=== PATIENT | male | born 1950 | race Caucasian/White ===

== ENCOUNTER 2017-06-30 08:26 | Emergency (ER) | payer MEDICAID ==
--- NOTE | 2017-06-30 08:31 | EDPHY ---
HPI/HX/ROS/PE/MDM Narrative: CHIEF COMPLAINT: Right knee pain HPI: The patient is a homeless 66 y/o male arriving via EMS from the residential complaining of right knee pain secondary to a fall this morning. He was walking out of the bathroom and felt his right knee "go out" then he fell and struck his right knee on the floor. He has chronic pain in both knees and now acute pain on the lateral aspect of his right knee. He denies head strike, loss of consciousness, weakness, paresthesias, spinal pain, or other injuries. History of a liver transplant in 2008. REVIEW OF SYSTEMS: Aside from elements discussed in the HPI, a comprehensive 10-point review of systems was reviewed and is negative. PMH: Liver transplant 2008. SOCIAL HISTORY: Homeless. Normally walks with a cane. PHYSICAL EXAM: General:Patient is alert, in no acute distress. Thin. ENT:Eyes are normal to inspection. ENT inspection normal. Neck: Normal inspection. Full range of motion. Respiratory:No respiratory distress. Cardiovascular: Strong peripheral pulses. Normal cap refill. Skin: Normal color. No rash. Warm and dry. Extremities: Normal appearance. Full range of motion. Right knee is nontender, no visible trauma or effusion. No evidence of foreign body. Neuro: Oriented x3. Normal motor function. Normal sensory function. ED Course: This is a homeless 66 y/o male with a history of a liver transplant who presents from the residential with right knee pain worse than baseline after a fall this morning. No evidence of effusion or visible trauma on exam of his right knee. Plan for x-ray to rule out fracture. X-ray shows no acute fracture. Patient will be discharged with standard knee sprain care and follow up instructions. Return precautions discussed. - Data Points Imaging Results: Imaging Impressions Knee X-Ray 06/30/17 08:28 Impression: 1. No acute osseous abnormality seen right knee. 2. Moderate degenerative joint disease lateral knee joint with associated lateral osteophytes. 3. Mild soft tissue contusion suspected superficial to the patella with radiopaque density near the dermis that could represent foreign body. Imaging: Discussed imaging studies w/ sewer pipe offbearer Radiologist, I viewed and interpreted images myself General Initial Vital Signs: Initial Vital Signs Temperature (C) 36.8 C 06/30/17 08:31 Heart Rate 85 06/30/17 08:31 Respiratory Rate 16 06/30/17 08:31 Blood Pressure 129/81 H 06/30/17 08:31 O2 Sat (%) 92 06/30/17 08:31 O2 Delivery Mode Room Air Departure - Departure Disposition: Home, Routine, Self-Care Clinical Impression: Strain of right knee Qualifiers: Encounter type: initial encounter Qualified Code(s): S86.911A - Strain of unspecified muscle(s) and tendon(s) at lower leg level, right leg, initial encounter Condition: Good Instructions: Knee Pain (ED) Additional Instructions: 1. Take 600mg ibuprofen every 6-8 hours for pain and inflammation over the next 2-3 days. 2. Apply ice to sore areas. Expect to feel more sore over the next 24-48 hours. 3. Follow up with your primary care provider for unimproved symptoms over the next few days. Referrals: [facility],. [Clinic] - As per Instructions Report Scribed for: Tony Maynard Report Scribed by: Jenna Bejarano Date of Report: 06/30/17 Time of Report: 08:31 Physician Review and Approval Statement: Portions of this note were transcribed by an ED scribe. I personally performed the history, physical exam, and medical decision making; and confirm the accuracy of the information in the transcribed note.
[2017-06-30 08:38] VITALS: RESP 16
[2017-06-30 09:57] VITALS: BP 127/86; PULSE 83; TEMP 98.4; O2SAT 93
== END 2017-06-30 09:57 | disposition home or self-care (01) ==
DX: S86.911A Strain of unspecified muscle(s) and tendon(s) at lower leg level, right leg, initial encounter (principal); W18.09XA Striking against other object with subsequent fall, initial encounter; Y99.8 Other external cause status; Y93.01 Activity, walking, marching and hiking

== ENCOUNTER 2017-07-10 21:30 | Emergency (ER) | payer MEDICAID ==
[2017-07-10 21:47] VITALS: TEMP 97.9
--- NOTE | 2017-07-10 22:51 | EDPHY ---
H & P Stated Complaint: mechanical fall, hit head Source: Patient Exam Limitations: No limitations - Personal History Current Tetanus/Diphtheria Vaccine: Yes - Medical/Surgical History Hx Asthma: No Hx Chronic Respiratory Disease: No Hx Diabetes: No Hx Cardiac Disease: No Hx Renal Disease: No Hx Cirrhosis: No Hx Alcoholism: No Hx HIV/AIDS: No Hx Splenectomy or Spleen Trauma: No Other PMH: PMH: liver transplant 2009, chronic right knee pain. PSH: - Social History Smoking Status: Never smoked HPI/ROS: HPI: This is a 66-year-old male who presents with Chief Complaint: mechanical fall, hit head Location: Left forehead, posterior neck Quality: Injury Duration: 1 hr prior to arrival Signs and Symptoms: No LOC, no amnesia, no vomiting, No bleeding, no radiation , no numbness, no weakness, no tingling, no incontinence, no decreased range of motion, no swelling, + pain Timing: Acute Severity: [id number] Context: Patient is homeless and was carrying bags from his car. He reports that he lost his balance while getting out of the car and tripped, falling backwards and then to the side hitting the left side of his forehead and then with being his posterior neck back onto the cement. Tripped from standing position. Remembers all events surrounding the injury. Ambulatory at the scene. Denies LOC. Does complain of bilateral posterior neck discomfort but nonradiating in nature. Right-hand dominant. Cannot take Tylenol due to history of liver transplant. Denies alcohol or drug use. Patient reports he is drove himself to the emergency room. Has not taking any mebi-ose-njojliz medications for the discomfort. He complains of a dull aching headache on the left side of his forehead. Tetanus up-to-date. Not on any blood thinners. Modifying Factors: None Comment: ROS: see HPI Constitutional: No fever, no chills, no weight loss Eyes: No blurred vision Respiratory: No shortness of breath, no cough Cardiovascular: No chest pain Gastrointestinal: No nausea, no vomiting no diarrhea Genitourinary: No dysuria Extremities: No myalgias Neurologic: No weakness, no numbness Skin: No rashes Hematologic: No bruising, no bleeding MEDICAL/SURGICAL/SOCIAL HISTORY: Medical/Surgical history: liver transplant 2009, chronic right knee pain Social history: Homeless. CONSTITUTIONAL: Elderly, polite and cooperative, white male, awake and alert, no obvious distress HEENT: Small contusion without superficial abrasion noted on left side of forehead; no active bleeding; and normocephalic, PERRL, EOMI. no globe entrapment, no raccoon eyes. no Valle signs.Tympanic membranes clear. No tympanic membrane rupture. Nares patent; no septal hematoma. Oropharynx clear, no exudate and moist pink mucosa. No malocclusion. no dental trauma. Airway patent. No lymphadenopathy. NECK: supple, no midline tenderness, mild reproducible bilateral cervical paraspinous muscle tenderness, flexion 45 degrees, extension 45 degrees, right and left lateral flexion 45 degrees. No meningismus. Cardiovascular: Normal S1/S2, regular rate, regular rhythm, without murmur rub or gallop. PULMONARY/CHEST: Symmetrical and nontender. no crepitus. Clear to auscultation bilaterally. Good air movement. No accessory muscle usage. ABDOMEN: Soft, nondistended, nontender, no ecchymosis, no rebound, no guarding , no peritoneal signs, no masses or organomegaly. No CVAT. PELVIC: no pain with rocking; bilateral hips flexion 125 degrees, extension 30 degrees, with no pain internal rotation and no pain external rotation. BACK: No midline tenderness, no paraspinous spasm, deep tendon reflexes 2/2, no pain with straight leg raise EXTREMITIES: 2/2 pulses, no deformities, no clubbing, no cyanosis or edema. NEUROLOGICAL: no focal neuro deficits. GCS 15. SKIN: Warm and dry, no erythema. no rash. Good capillary refill. (Solo,Terra) Constitutional: Initial Vital Signs Temperature (C) 36.6 C 07/10/17 21:34 Heart Rate 103 H 07/10/17 21:34 Respiratory Rate 18 07/10/17 21:34 Blood Pressure 134/102 H 07/10/17 21:34 O2 Sat (%) 94 07/10/17 21:34 O2 Delivery Mode Room Air Allergies/Adverse Reactions: No Known Allergies Allergy (Unverified 07/10/17 21:37) Home Medications: Medication Instructions Recorded Tacrolimus 07/10/17 Medical Decision Making - Diagnostics Imaging Results: Imaging Impressions Cervical Spine CT 07/10/17 22:25 Impression: 1. No acute fracture or soft tissue swelling. 2. If the patient has persistent pain or neurologic deficits, consider cervical spine MRI. Findings discussed with Emergency Department physician, Rhiannon Banda at 2017 23:28. Head CT 07/10/17 22:25 Impression: 1. No acute fracture or evidence of acute intracranial injury. 2. Minimal left frontal scalp swelling. Findings discussed with Emergency Department physician, Rhiannon Banda at 2017 23:28. ED Course/Re-evaluation: Fall accidental in nature. Based on [place] head CT and cervical CT criteria: Age greater than or equal to 65 No neurological deficits Given ice pack and left forehead contusion/abrasion clean with soap and water and bacitracin applied. Called by radiologist, Dr. Mueller, who advised that Head CT shows no acute intracranial abnormality. CT cervical scan shows no acute fracture; severe multilevel degenerative changes No signs of neurovascular compromise/tenting of skin/compartment syndrome/ extremities and joints examined above and below area of concern and are neurovascularly intact. This patient was seen under the supervision of my secondary supervising physician. I evaluated care for this patient independently. (Rhiannon Banda) PHYSICIAN DOCUMENTATION: The patient was evaluated and managed by the Physician Resident Service Coordinator. My co- signature indicates that I have reviewed this chart and I agree with the findings and plan of care as documented. I am the secondary supervising physician. (Nehal Flaherty) Differential Diagnosis: Head injury including but not limited to concussion, skull fracture, intraparenchymal contusion, subarachnoid, subdural and epidural hematoma. (Rhiannon Banda) Departure - Departure Disposition: Home, Routine, Self-Care Clinical Impression: Degenerative disc disease, cervical Contusion of forehead Qualifiers: Encounter type: initial encounter Qualified Code(s): S00.83XA - Contusion of other part of head, initial encounter Accidental fall Qualifiers: Encounter type: initial encounter Qualified Code(s): W19.XXXA - Unspecified fall, initial encounter Condition: Good Instructions: Abrasion (ED), Scalp Contusion in Adults (ED), R.I.C.E. Treatment (ED), Degenerative Disc Disease (ED) Additional Instructions: Keep the dressing dry and in place for 48 hours. After 48 hours, you may remove the dressing; wash the site daily with mild soap and water; then pat dry; apply topical antibiotic ointment and clean sterile dressing until fully healed. Take Ibuprofen 600 mg every 8 hours with food as needed for pain. Apply ice for 30 minutes at a time; 2-3 times per day for the next 1-2 days. Monitor for signs and symptoms of concussion. Head CT scan shows no acute bleed. Cervical CT scan shows severe degenerative disc disease but no acute fracture. Referrals: [facility],. [Clinic] - As per Instructions
[2017-07-10 23:45] VITALS: BP 125/86; PULSE 91; RESP 14; O2SAT 91
== END 2017-07-11 00:32 | disposition home or self-care (01) ==
LOC: EDUNIT# → EDBD → EDSEX
DX: S00.83XA Contusion of other part of head, initial encounter (principal); M50.30 Other cervical disc degeneration, unspecified cervical region; W01.198A Fall on same level from slipping, tripping and stumbling with subsequent striking against other object, initial encounter; Y93.89 Activity, other specified

== ENCOUNTER 2017-07-20 01:57 | Inpatient (IN) | payer OTHER, MEDICAID ==
[2017-07-20] MEDS ORDERED: IPRATROPIUM/ALBUTEROL 3 ML DEYVIAL IH ONE (02:00)
[2017-07-20] MEDS ORDERED: NS 500 ML IV ONE (02:00)
[2017-07-20 02:07] LABS: PLATELET COUNT 149 10^3/uL (150-400)
[2017-07-20] MEDS ORDERED: NS 1,000 ML IV ONE ×2 (03:49→08:19)
[2017-07-20] MEDS ORDERED: IBUPROFEN 200 MG TAB PO ONE (05:00)
--- NOTE | 2017-07-20 05:02 | EDPHY ---
H & P Stated Complaint: SOB-Cough HPI/ROS: HPI The patient presents [facility] in by ambulance [facility] the [facility] for cough , generalized weakness, subjective fevers. The patient says he has been sick for a few days now and feels generally tired and very weak. He has a cough which is constant, productive of yellowish-green sputum. He has felt warm though has not been able to check his temperature. He has had rhinorrhea and sore throat. He is status post liver transplant in 2008 and is taking CellCept. He denies any smoking history or any underlying lung disease. As he had initial saturations of about 88% in the field, improved with supplemental oxygen.. REVIEW OF SYSTEMS Constitutional: Subjective fevers Eyes: No discharge. ENT: Positive for sore throat. Cardiovascular: No chest pain, no palpitations. Respiratory: Positive for cough, no shortness of breath. Gastrointestinal: No abdominal pain, no vomiting. Genitourinary: No hematuria. Musculoskeletal: No back pain. Skin: No rashes. Neurological: No headache. PMHx: Status post liver transplant in 2008 Soc Hx: Homeless, no alcohol use, no smoking PHYSICAL General Appearance: Alert, somewhat disheveled Eyes: Pupils equal and round no pallor or injection ENT, Mouth: Mucous membranes dry Respiratory: Actively coughing, coarse breath sounds throughout all lung amado Cardiovascular: Mild tachycardia with regular rhythm Gastrointestinal: Abdomen is soft and non-tender, no masses, bowel sounds normal Neurological: A&O, moves all extremities Skin: Warm and dry, no rashes Musculoskeletal: Neck is supple non tender Extremities: symmetrical, full range of motion, shins with abrasions Psychiatric: Patient is oriented X 3, there is no agitation Source: Patient Exam Limitations: No limitations - Personal History Current Tetanus Diphtheria and Acellular Pertussis (TDAP): Yes - Medical/Surgical History Hx Asthma: No Hx Chronic Respiratory Disease: No Hx Diabetes: No Hx Cardiac Disease: No Hx Renal Disease: No Hx Cirrhosis: No Hx Alcoholism: No Hx HIV/AIDS: No Hx Splenectomy or Spleen Trauma: No Other PMH: PMH: liver transplant 2008, chronic right knee pain. PSH: - Social History Smoking Status: Never smoked Constitutional: Initial Vital Signs Temperature (C) 37.4 C 07/20/17 02:03 Heart Rate 95 07/20/17 02:03 Respiratory Rate 24 H 07/20/17 02:03 Blood Pressure 158/87 H 07/20/17 02:03 O2 Sat (%) 89 L 07/20/17 02:03 O2 Delivery Mode Nasal Cannula O2 (L/minute) 2 Allergies/Adverse Reactions: No Known Allergies Allergy (Unverified 07/20/17 02:02) Home Medications: Medication Instructions Recorded Tacrolimus [Prograf] 1 mg PO BID 07/10/17 Medical Decision Making - Diagnostics Imaging Results: Imaging Impressions Chest X-Ray 07/20/17 02:00 Impression: Possible early right middle lobe pneumonia. . Imaging: I viewed and interpreted images myself Differential Diagnosis: This is a 66-year-old homeless male, status post liver transplant on tacrolimus who presents brought in by ambulance from the [facility] with weakness, cough, subjective fevers. On arrival, he is slightly tachycardic, hypoxic, with coarse breath sounds throughout all lung amado. Differential diagnosis includes influenza, pneumonia, RSV bronchiolitis, pericarditis. In the emergency department, patient was given IV fluids in DuoNeb with minimal improvement in his symptoms, chest x-ray was obtained and showed possible right middle lobe infiltrate. Testing was positive for RSV. He became increasingly tachycardic while in the emergency department, even several hours after receiving DuoNeb. He has been given antibiotics. Blood cultures have been drawn. He will be admitted to the hospitalist service. I discussed the case with Dr. Mccormack. - Data Points Laboratory Results: Laboratory Results 07/20/17 02:00 07/20/17 02:00 Medications Given: Enoxaparin Sodium (Lovenox) 40 mg SC DAILY FRANCO Stop: 01/16/18 08:59 Last Admin: 07/20/17 09:42 Dose: 40 mg Dextrose/Sodium Chloride (D5w 1/2 Ns) 1,000 mls @ 100 mls/hr IV CONT FRANCO Stop: 01/16/18 08:59 Last Admin: 07/20/17 17:54 Dose: 1,000 mls Ibuprofen (Motrin) 400 mg PO Q6HRS PRN PRN Reason: Pain, Inflammatory Stop: 01/16/18 17:40 Last Admin: 07/20/17 17:52 Dose: 400 mg Tacrolimus (Prograf) 1 mg PO Q12H FRANCO Stop: 01/16/18 19:44 Last Admin: 07/20/17 19:43 Dose: 1 mg Discontinued Medications Albuterol/Ipratropium (Duoneb) 3 ml IH EDNOW ONE Stop: 07/20/17 02:01 Last Admin: 07/20/17 02:17 Dose: 3 ml Sodium Chloride (Ns) 500 mls @ 1,000 mls/hr IV EDNOW ONE PRN Reason: Protocol Stop: 07/20/17 02:29 Last Admin: 07/20/17 02:16 Dose: 500 mls Sodium Chloride (Ns) 1,000 mls @ 0 mls/hr IV EDNOW ONE; Wide Open PRN Reason: Protocol Stop: 07/20/17 03:50 Last Admin: 07/20/17 04:06 Dose: 1,000 mls Sodium Chloride (Ns) 1,000 mls @ 0 mls/hr IV ONCE ONE PRN Reason: Wide Open Stop: 07/20/17 08:20 Last Admin: 07/20/17 08:20 Dose: 1,000 mls Ibuprofen (Motrin) 600 mg PO EDNOW ONE Stop: 07/20/17 05:01 Last Admin: 07/20/17 05:02 Dose: 600 mg Levofloxacin (Levaquin) 750 mg PO EDNOW ONE PRN Reason: Protocol Stop: 07/20/17 04:38 Last Admin: 07/20/17 05:01 Dose: 750 mg Departure - Departure Disposition: [facility] Acute Condition: Fair
[2017-07-20] MEDS ORDERED: ALBUTEROL 3 ML DEYVIAL IH PRN (05:06)
[2017-07-20] MEDS ORDERED: ONDANSETRON 4 MG/2 ML VIAL IVP PRN (05:06)
[2017-07-20] MEDS ORDERED: ACETAMINOPHEN 325 MG TAB PO PRN (05:06)
--- NOTE | 2017-07-20 09:22 | GHP ---
[f rep st] HISTORY AND PHYSICAL DATE OF ADMISSION: 07/20/2017 Patient without a PCP. SOURCE: Patient provides history, is a fair historian. EMR reviewed and case discussed with ED belem hernandez. CHIEF COMPLAINT: Cough. HISTORY OF PRESENT ILLNESS: This is a very pleasant 66-year-old gentleman who is currently homeless, who presents to the emergency department today with complaints of increasing cough, rhinorrhea, sore throat for the past week. Patient today has developed some increased fevers, chills, and shortness of breath. He has multiple sick contacts at the homeless retirement. He denies any nausea, vomiting, o r diarrhea. Patient reports cough is productive of yellow sputum. He denies any previous history of asthma or COPD. Patient does have a history significant for liver transplant, for which he continue s to take tacrolimus. REVIEW OF SYSTEMS: GENERAL: Positive for fevers, chills, sweats. SKIN: No rashes sores. ENT: Po sitive for congestion, sore throat. EYES: Patient denies any current acute changes in vision or ocu lar pain. CV: No chest pain palpitations. RESPIRATORY: Cough and shortness of breath, as noted pe r HPI. GI: Negative for nausea, vomiting, or diarrhea. : No dysuria or hematuria. MUSCULOSKELE AUGUSTO: Patient reports history of osteoarthritis, particularly in his knees. NEURO: Patient denies a ny focal weakness, but he does report a history of neuropathy in his distal extremities, upper and lo wer. PSYCH: Patient denies any anxiety or depression. Remainder of review of systems negative exce pt as noted above. ALLERGIES: No known drug allergies. HOME MEDICATIONS: Tacrolimus twice daily. PAST MEDICAL HISTORY: 1. Significant for liver transplant 2008, on chronic immunosuppression with tacrolimus. 2. Degenerative disk disease of cervical spine. 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 PAST SURGICAL HISTORY: Significant for liver transplant, TIPS procedure, EGD, colonoscopy prior to h is transplant. FAMILY HISTORY: Sister and mother also with a history of asthma and liver disease, both . SOCIAL HISTORY: Patient currently homeless. He relocated from [place] back to [place]. He is aw aiting housing placement. He has yet to establish PCP. Patient denies any history of tobacco, drugs, or alcohol. CODE STATUS: Full. PHYSICAL EXAMINATION: VITAL SIGNS: Upon arrival to the emergency department, blood pressure 158/87, heart rate is 95, respiratory rate 24, O2 saturation 89% on room air with a temperature 37.4. Vital s available at time of interview, blood pressure was 99/60, heart rate 104, respiratory rate 20, O2 s aturation 96% on nasal cannula 2 L. GENERAL: No acute distress. Patient is lying quietly in bed. He does appear chronically ill and quite cachectic. Appears older than stated age. HEAD: Normoceph alic, atraumatic. EYES: Extraocular muscles are intact. Pupils equal, round, reactive to light loree aterally and symmetric. No scleral icterus or conjunctival injection. ENT: Mucous membranes appear dry. No nasal discharge. No pharyngeal erythema or exudates. Dentition in poor condition. NECK: Supple. Trachea midline. CV: Tachycardic with regular rhythm. Patient does have a 2 to 3/6 systo lic murmur. RESPIRATORY: Unlabored breathing. Lungs are quite diminished at the bases. Patient do es have crackles bibasilarly. No wheezes or rhonchi. ABDOMEN: Positive bowel sounds. Soft, nonten goyo to palpation. No rebound, guarding, or masses appreciated. : No suprapubic tenderness to pal pation. No James catheter in place. EXTREMITIES: Patient without any cyanosis, clubbing, clubbing, or edema. 1+ pedal pulses. NEURO: Grossly nonfocal. No facial drooping. Patient awake, alert, a nd oriented x4. Moves all extremities. Sits up independently. PSYCH: Patient thought process, con tent, and questions are all appropriate. Patient is pleasant and cooperative. LABORATORY STUDIES: WBC 6.77, H and H 15.0 and 44.9, MCV 93.7, platelet count is 149, no bands. Sod ium 144, potassium is 4.7, chloride 104, CO2 is 27, anion gap 313, BUN is 22, creatinine 0.7, GFR gre ater than 60, glucose 88, calcium 9.9, total bilirubin 0.7, ALT 37, AST 32, alkaline phosphatase is 7 5, total protein 7.5, albumin 4.6. Flu PCR is negative. RSV positive. Blood cultures x2 pending. Chest x-ray image and report reviewed by myself. Bilateral lower lobe infiltrates in the r ight lower lobe. Peribronchiolar thickening bilaterally. ASSESSMENT AND PLAN: Very pleasant 66-year-old gentleman who presents with complaints of cough and f ever. 1. Respiratory syncytial virus, bronchiolitis, with likely superimposed pneumonia. Patient has rece ived Levaquin in the emergency department. Will plan to continue this. Nebulizer treatment will be available p.r.n. No previous history of lung disease. Patient will also receive aggressive IV fluid hydration in the emergency department. He received a 1.5 L bolus, which will continue as he does co ntinue to appear dry and blood pressures are slightly low. 2. Hypoxia. Supplemental oxygen. Titrate off as possible to maintain sats greater than 90. 3. Hypotension. Continue with aggressive IV fluid hydration. Patient is currently without a lactat e. We will add this on. 4. Hypertension. Will continue to monitor closely. 5. Immunosuppressive state. Continue patient's tacrolimus. He is currently on antibiotics. 6. History of liver transplant, as noted above. 7. Thrombocytopenia, likely related to patient's acute illness, is only minimally decreased, slightl y below normal. The patient will be placed on Lovenox for prophylaxis and will monitor platelet coun t closely. 8. Underweight. The patient's body mass index is 18.5. Nutrition consult. 9. Fluid, electrolyte, nutrition. Aggressive IV fluid hydration as noted above. Electrolytes will be monitored and replaced as needed. The patient will receive D5 half-normal saline at this time for supplementation. He has received 1.5 L normal saline in the emergency department. 10. Diet: As tolerated. 11. Prophylaxis. SCDs, Lovenox with monitoring of platelet count. 12. Code status is full. 13. Disposition: Patient has been admitted to observation status at this time, pending resolution o f his blood pressures and hypoxia with IV fluids and O2 supplementation. /[id number]/MODL
[2017-07-20] MEDS: D5W 1/2 NS 1,000 ML IV SCH ×2 (09:40→17:54)
[2017-07-20] MEDS: ENOXAPARIN 40 MG/0.4 ML SYR SC SCH (09:42)
--- NOTE | 2017-07-20 15:09 | ASMTCMCOM ---
CM Note CM Note Notes: Pt admittedd w/RSV and likely PNA. He has hx of liver transplant, is currently homeless staying at [facility] and awaiting housing. PT said pt may possibly need SNF, although pt just admitted today, will see how he progresses tomorrow and discuss possibility of SNF if not stronger. If pt dc's back to [facility] CM will need to speak to pt about establishing PCP and set up appt. CM will follow. Date Signed: 07/20/2017 03:08 PM Electronically Signed By:Kristen Fuentes RN
--- NOTE | 2017-07-20 15:43 | HOSPPROG ---
Hospitalist Progress Note Assessment/Plan: # acute respiratory syncytial virus infection- patient very symptomatic at presentation hypotension and tachycardic- subjective fevers and chills Blood cultures from admission- no growth today - continue IV fluid - continue supportive care # acute hypoxic respiratory failure - presume secondary to RSV however patient chronically immunosuppressed Chest x-ray(personally reviewed and interpreted) right middle lobe infiltrate Oxygen saturations 92% on 2 L - continue levofloxacin IV - monitor blood cultures - continue inhaled beta agonist # acute community-acquired pneumonia- suspect secondary to RSV however in the immunosuppressed state will cover for secondary bacterial pathogens # history of liver transplantation- continue home dosing of Prograf # tachycardia- suspect secondary to hypovolemia and acute infection - continue IV fluid resuscitation #Prophylaxis Lovenox # diet regular # disposition greater than 2 midnights as the patient is chronically immunosuppressed presenting with pneumonia I have discussed the case with the RN- continue current care Subjective: Feels terrible Objective: Vital Signs Temp Pulse Resp BP Pulse Ox 37.1 C 98 20 108/69 92 07/20/17 15:30 07/20/17 15:30 07/20/17 15:30 07/20/17 15:30 07/20/17 15:30 07/19/17 07/20/17 07/21/17 05:59 05:59 05:59 Intake Total 1000 Output Total 600 Balance 400 - Physical Exam Constitutional: no apparent distress Eyes: anicteric sclera Ears, Nose, Mouth, Throat: moist mucous membranes Cardiovascular: regular rate and rhythym Respiratory: no respiratory distress, No expiratory wheeze Gastrointestinal: normoactive bowel sounds Genitourinary: no bladder fullness Skin: warm Musculoskeletal: No asymmetric calves Neurologic: AAOx3 Psychiatric: interacting appropriately Lymph, Heme, Immunologic: no cervical LAD ICD10 Worksheet Patient Problems: Problems Problem Status Onset CAP (community acquired pneumonia) Acute - ICD10 Problem Qualifiers (1) CAP (community acquired pneumonia)
--- NOTE | 2017-07-20 16:02 | ASMTCMCOM ---
CM Note CM Note Notes: Spoke w/, requested CM call [facility] because pt's dog Sandoval is there while he's in hospital. CM called and spoke paige/Faith [phone], to notify her that pt may be here several days. She states they are prepared to take care of Sandoval until the end of July. CM to keep in contact with [facility]. Date Signed: 07/20/2017 04:01 PM Electronically Signed By:Nisa Dumont RN
[2017-07-20] MEDS: IBUPROFEN 200 MG TAB PO PRN (17:52)
[2017-07-20] MEDS: TACROLIMUS 1 MG CAP PO SCH (19:43)
[2017-07-21] MEDS: D5W 1/2 NS 1,000 ML IV SCH (05:19)
[2017-07-21] MEDS: ENOXAPARIN 40 MG/0.4 ML SYR SC SCH (08:43)
[2017-07-21] MEDS: TACROLIMUS 1 MG CAP PO SCH ×2 (08:43→21:19)
[2017-07-21] MEDS ORDERED: levOFLOXACIN 500 MG/DEXTROSE 100 ML IV SCH (09:00)
--- NOTE | 2017-07-21 16:16 | HOSPPROG ---
Hospitalist Progress Note Assessment/Plan: # acute respiratory syncytial virus infection- resolved hypotension and tachycardia-improved subjective fevers and chills Blood cultures NGTD - WBC 5.8 this am - dc IV fluid - continue supportive care - continue inhaled beta agonists # acute hypoxic respiratory failure - presume secondary to RSV however patient chronically immunosuppressed- resolved Chest x-ray (personally reviewed and interpreted) right middle lobe infiltrate Oxygen saturations 92% on RA - transition to p.o. levofloxacin IV - monitor blood cultures - continue inhaled beta agonist # acute community-acquired pneumonia- suspect secondary to RSV however in the immunosuppressed state will cover for secondary bacterial pathogens # history of liver transplantation- continue home dosing of Prograf # tachycardia- suspect secondary to hypovolemia and acute infection- improved after fluid resuscitation - dc IV fluid resuscitation #Prophylaxis Lovenox # diet regular # disposition greater than 2 midnights as the patient is chronically immunosuppressed presenting with pneumonia I have discussed the case with the adult protective caseworker-patient is quite weak on therapy exam working to arrange [place] [facility] placement Subjective: Still feels weak Objective: Vital Signs Temp Pulse Resp BP Pulse Ox 37.1 C 95 16 97/58 L 93 07/21/17 14:26 07/21/17 14:26 07/21/17 14:26 07/21/17 14:26 07/21/17 14:26 Laboratory Results 07/21/17 04:22 07/20/17 07/21/17 07/22/17 05:59 05:59 05:59 Intake Total 3452 Output Total 1825 Balance 1627 - Physical Exam Constitutional: no apparent distress Eyes: anicteric sclera Ears, Nose, Mouth, Throat: moist mucous membranes Cardiovascular: regular rate and rhythym Respiratory: no respiratory distress, No expiratory wheeze Gastrointestinal: normoactive bowel sounds Genitourinary: no bladder fullness Skin: warm Musculoskeletal: No asymmetric calves Neurologic: AAOx3 Psychiatric: depressed Lymph, Heme, Immunologic: no cervical LAD ICD10 Worksheet Patient Problems: Problems Problem Status Onset CAP (community acquired pneumonia) Acute - ICD10 Problem Qualifiers (1) CAP (community acquired pneumonia)
--- NOTE | 2017-07-21 17:12 | PDMN ---
Medical Necessity Medical necessity: Change to IP, as of 07/21/17, per MD; los >2 mn for ongoing management of acute community-acquired pneumonia secondary to RSV & acute hypoxic respiratory failure; admit for further monitoring, supportive care, IV abx & therapies; per progress note & order 07/21/17
--- NOTE | 2017-07-21 17:36 | ASMTCMCOM ---
CM Note CM Note Notes: Volunteer clementina met with pt to do MDPOA and pt asked that CM check on pt's truck that he left in the parking lot of [facility]. He is worried it will be towed. CM spoke w/Angelique at [facility] and his truck is there ([employer]) and that they will put a sign on it so it will not be towed. Pt also inquired about his guitar but they did not find one, will inquire at a [facility]. PT/OT recommend SNF, pt agreeable, would like some place in [place]. May needs ultc-100, has Medicare/Medicaid DC Plan: SNF Date Signed: 07/21/2017 05:36 PM Electronically Signed By:Nisa Dumont RN
[2017-07-21] MEDS: IBUPROFEN 200 MG TAB PO PRN (21:19)
[2017-07-22] MEDS: IBUPROFEN 200 MG TAB PO PRN (09:23)
[2017-07-22] MEDS: TACROLIMUS 1 MG CAP PO SCH ×2 (09:24→22:00)
[2017-07-22] MEDS: ENOXAPARIN 40 MG/0.4 ML SYR SC SCH (09:25)
--- NOTE | 2017-07-22 15:29 | HOSPPROG ---
Hospitalist Progress Note Assessment/Plan: # acute respiratory syncytial virus infection- resolved hypotension and tachycardia-improved subjective fevers and chills Blood cultures NGTD - WBC 5.8 - lung exam clear today - continue supportive care - continue inhaled beta agonists # acute hypoxic respiratory failure - presume secondary to RSV however patient chronically immunosuppressed- resolved Chest x-ray (personally reviewed and interpreted) right middle lobe infiltrate Oxygen saturations 90% on RA - complete 7 day course p.o. levofloxacin - monitor blood cultures -continue inhaled beta agonist # acute community-acquired pneumonia- suspect secondary to RSV however in the immunosuppressed state will cover for secondary bacterial pathogens # history of liver transplantation- continue home dosing of Prograf # tachycardia- suspect secondary to hypovolemia and acute infection- improved after fluid resuscitation - dc IV fluid resuscitation #Prophylaxis Lovenox # diet regular # disposition greater than 2 midnights as the patient is chronically immunosuppressed presenting with pneumonia I have discussed the case with the patient case coordinator-working on fpc facility placement Subjective: Feeling so much better Objective: Vital Signs Temp Pulse Resp BP Pulse Ox 36.6 C 73 15 117/66 94 07/22/17 09:13 07/22/17 09:13 07/22/17 09:13 07/22/17 09:13 07/22/17 09:13 07/21/17 07/22/17 07/23/17 05:59 05:59 05:59 Intake Total 1750 Output Total 300 Balance 1450 - Physical Exam Constitutional: chronically ill appearing Eyes: anicteric sclera Ears, Nose, Mouth, Throat: moist mucous membranes Cardiovascular: regular rate and rhythym Respiratory: no respiratory distress, No expiratory wheeze Gastrointestinal: normoactive bowel sounds Genitourinary: no bladder fullness Skin: warm Musculoskeletal: No asymmetric calves Neurologic: AAOx3 Psychiatric: interacting appropriately Lymph, Heme, Immunologic: no cervical LAD ICD10 Worksheet Patient Problems: Problems Problem Status Onset CAP (community acquired pneumonia) Acute chronic disease mgmt/transitional care Acute - ICD10 Problem Qualifiers (1) CAP (community acquired pneumonia)
--- NOTE | 2017-07-22 15:44 | ASMTCMCOM ---
CM Note CM Note Notes: Current Discharge Plan: [facility] in [place] Per previous Case Management note, patient wishes to discharge to a skilled facility in [place]. Referrals sent to both [facility] and [facility]. [facility] has no bed availability. Spoke with Mario at [facility], able to accept this patient when medically stable. PASRR completed and sent to facility. 3E CM on floor to coordinate placement of patient's dog while he goes to SNF. CM will continue to follow. Date Signed: 07/22/2017 03:43 PM Electronically Signed By:Neema Mcmillan RN
--- NOTE | 2017-07-22 17:21 | ASMTCMCOM ---
CM Note CM Note Notes: Left message for [facility] at [facility], pt will need to go to SNF, per Faith at our last conversation, they are prepared to take care of Mcbaine until the end of July. Date Signed: 07/22/2017 05:20 PM Electronically Signed By:Nisa Dumont RN
--- NOTE | 2017-07-23 08:24 | HOSPPROG ---
Hospitalist Progress Note Assessment/Plan: #RSV infection -supportive care. Stable on RA #CAP: LQ #Mild hypotension: will give gentle IVFs #Chronic immunosuppression: Tacrolimus #h/i liver transplant #Acute hypoxic resp failure: resolved #DVT ppx: Lovenox #Disp: awaiting SNF placement Subjective: cough with clear sputum. No SOB Objective: Vital Signs Temp Pulse Resp BP Pulse Ox 36.5 C 87 16 123/73 H 96 07/23/17 07:34 07/23/17 07:34 07/23/17 07:34 07/23/17 07:34 07/23/17 07:34 07/22/17 07/23/17 07/24/17 05:59 05:59 05:59 Intake Total 1750 800 Output Total 300 4 Balance 1450 796 - Physical Exam Constitutional: no apparent distress Eyes: PERRL Ears, Nose, Mouth, Throat: moist mucous membranes, dry mucous membranes Cardiovascular: regular rate and rhythym, no murmur, rub, or gallop Respiratory: no respiratory distress, No rhonchi Gastrointestinal: normoactive bowel sounds Genitourinary: no bladder fullness, No linder in urethra Skin: warm Musculoskeletal: full muscle strength Neurologic: AAOx3, CN II-XII Intact Psychiatric: interacting appropriately ICD10 Worksheet Patient Problems: Problems Problem Status Onset CAP (community acquired pneumonia) Acute chronic disease mgmt/transitional care Acute
[2017-07-23] MEDS: TACROLIMUS 1 MG CAP PO SCH ×2 (10:03→21:56)
[2017-07-23] MEDS: ENOXAPARIN 40 MG/0.4 ML SYR SC SCH (10:03)
--- NOTE | 2017-07-23 11:43 | ASMTCMCOM ---
CM Note CM Note Notes: Spoke w/pt, let him know that he was accepted by [facility] in [place]. Pt pleased but inquired about his dog being able to stay with him there. CM told pt it's unlikely his dog can stay with him there as they may not have the staffing to accomodate dog care. Pt became very upset and stating "If I can't have my dog, I don't want to live!" " Everything has been taken from me!" CM assured pt that no one was trying to take his dog away but that he has to recover and that CM can work with [facility] so his dog can at least visit him. Pt states Jerica is a service dog but he does not have documentation and began to get upset again. Again, CM explained that at rehab, they would likely not be able to take care of his dog, but that he may need to stay at skilled nursing a bit longer and have visits until he is able to be discharged from SNF. Pt states he needs to go from SNF to [facility], he is on a waitlist with [facility]. CM to contact Faith at the [facility] DC Plan: [facility] Date Signed: 07/23/2017 11:42 AM Electronically Signed By:Nisa Dumont RN
[2017-07-23] MEDS: NS 1,000 ML IV SCH ×3 (15:41→18:50)
--- NOTE | 2017-07-24 08:18 | HOSPPROG ---
Hospitalist Progress Note Assessment/Plan: #RSV infection -supportive care. Stable on RA #CAP: LQ through 07/25 #Mild hypotension: improving with normal saline #Chronic immunosuppression: Tacrolimus #h/i liver transplant #Acute hypoxic resp failure: resolved #DVT ppx: Lovenox #Disp: warrants hospitalization for IVFs and awaiting SNF placement Subjective: no dizziness or lightheadedness Objective: Vital Signs Temp Pulse Resp BP Pulse Ox 36.8 C 81 16 115/72 93 07/24/17 07:30 07/24/17 07:30 07/24/17 07:30 07/24/17 07:30 07/24/17 07:30 Laboratory Results 07/24/17 04:15 07/23/17 07/24/17 07/25/17 05:59 05:59 05:59 Intake Total 800 1500 Output Total 4 Balance 796 1500 - Physical Exam Constitutional: no apparent distress Eyes: PERRL Ears, Nose, Mouth, Throat: moist mucous membranes Cardiovascular: regular rate and rhythym, no murmur, rub, or gallop Respiratory: no respiratory distress, rhonchi (improved) Gastrointestinal: normoactive bowel sounds Genitourinary: no bladder fullness Skin: warm Musculoskeletal: full muscle strength Neurologic: AAOx3, CN II-XII Intact Psychiatric: interacting appropriately ICD10 Worksheet Patient Problems: Problems Problem Status Onset CAP (community acquired pneumonia) Acute chronic disease mgmt/transitional care Acute
[2017-07-24] MEDS: TACROLIMUS 1 MG CAP PO SCH ×2 (10:31→21:17)
[2017-07-24] MEDS: ENOXAPARIN 40 MG/0.4 ML SYR SC SCH (10:31)
--- NOTE | 2017-07-25 08:28 | HOSPPROG ---
Hospitalist Progress Note Assessment/Plan: #RSV infection -supportive care. Stable on RA #CAP: completing course abx today #Mild hypotension: improving with normal saline #Chronic immunosuppression: Tacrolimus #h/ liver transplant: Tacrolimus #Acute hypoxic resp failure: resolved #DVT ppx: Lovenox #Disp:medically clear for DC. Awaiting SNF placement Subjective: had BM. No SOB or fevers. Min cough Objective: Vital Signs Temp Pulse Resp BP Pulse Ox 36.5 C 82 16 114/70 92 07/25/17 07:31 07/25/17 07:31 07/25/17 07:31 07/25/17 07:31 07/25/17 07:31 Laboratory Results 07/24/17 04:15 07/24/17 07/25/17 07/26/17 05:59 05:59 05:59 Intake Total 1500 150 Balance 1500 150 - Physical Exam Constitutional: no apparent distress Eyes: PERRL Ears, Nose, Mouth, Throat: moist mucous membranes, hearing normal Cardiovascular: regular rate and rhythym, no murmur, rub, or gallop Respiratory: no respiratory distress Gastrointestinal: normoactive bowel sounds, soft, non-tender abdomen Genitourinary: no bladder fullness, No linder in urethra Skin: warm Neurologic: AAOx3, CN II-XII Intact Psychiatric: interacting appropriately ICD10 Worksheet Patient Problems: Problems Problem Status Onset CAP (community acquired pneumonia) Acute chronic disease mgmt/transitional care Acute
[2017-07-25] MEDS: ENOXAPARIN 40 MG/0.4 ML SYR SC SCH (10:02)
[2017-07-25] MEDS: TACROLIMUS 1 MG CAP PO SCH ×2 (10:02→22:33)
--- NOTE | 2017-07-25 16:55 | ASMTCMCOM ---
CM Note CM Note Notes: Left a message for Faith Crisostomo ([phone]) with the [facility] to make plans for patient's dogJerica. Patient is still on schedule for SNF rehab with [facility]. Will talk to [facility] tomorrow to see if we can help locate patient's guitar and car. CM will follow. Date Signed: 07/25/2017 04:54 PM Electronically Signed By:Cecile Le LCSW
[2017-07-26] MEDS: ENOXAPARIN 40 MG/0.4 ML SYR SC SCH (09:59)
[2017-07-26] MEDS: TACROLIMUS 1 MG CAP PO SCH ×2 (09:59→22:07)
--- NOTE | 2017-07-26 13:50 | PDIAF ---
- Diagnosis Diagnosis: RSV Code Status: Full Code - Medication Management Discharge Medications: Medications to Continue on Transfer Tacrolimus [Prograf] 1 mg PO BID@07/10/17 [Last Taken 07/19/17] Ibuprofen [Motrin (*)] 400 mg PO Q6HRS PRN tab 07/25/17 [Last Taken Unknown] Discharge Medications: Refer to the Discharge Home Medication list for PRN reason. - Orders Services needed: Registered Nurse, Physical Therapy, Occupational Therapy Isolation Type: Contact Isolation, Droplet Isolation Diet Recommendation: no restrictions on diet Diet Texture: Regular Texture Diet - Follow Up Care Current Providers and Referrals: NONE *PRIMARY CARE P,. [Primary Care Provider] - As per Instructions
--- NOTE | 2017-07-26 14:14 | GDS ---
[f rep st] DISCHARGE SUMMARY DISCHARGE DIAGNOSIS: 1. Respiratory syncytial virus infection. 2. Community-acquired pneumonia. 3. Mild hypotension. 4. Chronic immunosuppression, on tacrolimus. 5. History of liver transplant. 6. Acute hypoxic respiratory failure. HISTORY OF PRESENT ILLNESS: A 66-year-old male with history of a liver transplant on chronic immunos uppression with tacrolimus, who is currently homeless presenting with cough, rhinorrhea, and sore thr oat for a week prior to admission. He had some increased fevers, chills, and shortness of breath. Dayana gray has had multiple sick contacts at [facility]. Denies nausea, vomiting, or diarrhea. Reports of productive cough and yellow sputum. HOSPITAL COURSE: 1. Acute hypoxemic respiratory failure: This is secondary to RSV infection and community-acquired p neumonia. He completed a course of Levaquin. He is now stable on room air. 2. Community-acquired pneumonia: Completed a course of Levaquin. 3. Mild hypotension: This was secondary to decreased p.o. intake. This resolved nicely with IV flu ids. 4. Chronic immunosuppression: Secondary to history of liver transplant. Continue tacrolimus. 5. Homelessness: Case Management has been very helpful in assisting with patient's dog and trying t o [facility] the [facility]. DISPOSITION: Patient is medically stable for transfer to [facility]. MEDICATIONS: No new medications. FOLLOWUP: Primary care physician. PHYSICAL EXAMINATION: VITAL SIGNS: Today, temperature 36.3, blood pressure 114/74, heart rate in th e 80s, respiration 20, 92% on room air. GENERAL: Well-appearing, appears much brighter. HEENT: PERR LA. EOMI. Moist mucous membranes. CARDIOVASCULAR: Regular rate and rhythm. No murmurs, gallops,or rubs. LUNGS: Lungs are clear. No crackles or wheezing. ABDOMEN: Soft, nontender, nondistended. Positive bowel sounds. GENITOURINARY: No James. MUSCULOSKELETAL: 5/5 upper and lower extremity stren gth. NEUROLOGIC: 2 through 12 intact. PSYCHIATRIC: Alert and oriented x3. /[id number]/MODL
--- NOTE | 2017-07-26 15:18 | ASMTCMCOM ---
CM Note CM Note Notes: Spoke with [facility] and they are ready for patient to d/c today. Seamus was prepared to set up transport when the patient informed his nurse he had dominick. Dr. Castro states we need to monitor and retest for CDIFF. Contacted [facility] back. The d/c is on hold until Dr. Castro has cleared patient to go. 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 Tried multiple times to contact the [facility] to check on [place]. They are closed today due to inclement weather. Discharge papers were already faxed to [facility] via [employer].CM will follow. Date Signed: 07/26/2017 03:17 PM Electronically Signed By:Cecile Le LCSW
--- NOTE | 2017-07-26 15:50 | HOSPPROG ---
Hospitalist Progress Note Assessment/Plan: Addendum to DC summary Plan for DC today, but patient reports new black stools. DRILLING SUPERVISOR stated brown, but watery. To be thorough will check C diff sinw going to SNF. Also, H/H and FOBT. Hold Lovenox Objective: Vital Signs Temp Pulse Resp BP Pulse Ox 36.3 C 83 20 114/74 92 07/26/17 07:24 07/26/17 07:24 07/26/17 07:24 07/26/17 07:24 07/26/17 07:24 Laboratory Results 07/24/17 04:15 07/25/17 07/26/17 07/27/17 05:59 05:59 05:59 Intake Total 150 1735 Output Total 275 Balance 150 1735 -275 ICD10 Worksheet Patient Problems: Problems Problem Status Onset CAP (community acquired pneumonia) Acute chronic disease mgmt/transitional care Acute
--- NOTE | 2017-07-26 16:07 | ASMTCMCOM ---
CM Note CM Note Notes: Spoke with [facility] who states it is too late in the day and we need to move d/c to tomorrow. Dr. Castro informed to take down d/c order for now. We will await test results on patient and the resolution of any diahrrea. [facility] is prepared to take patient tomorrow if diahrrea has resolved and test results are negative. CM will follow. Date Signed: 07/26/2017 04:06 PM Electronically Signed By:Cecile Le LCSW
[2017-07-26 23:10] VITALS: O2SAT 92
[2017-07-27 08:09] VITALS: PULSE 82; RESP 12
[2017-07-27] MEDS: TACROLIMUS 1 MG CAP PO SCH (09:34)
--- NOTE | 2017-07-27 09:39 | PDDCSUM ---
Discharge Summary Discharge Summary: Please see dictated DC Summary dated 07/26/2017. There are no changes in his condition or dispo plan. He remained hospitalized an additional day due to report of bloody stool. RN noted small brown stool, no witnessed BRBPR or melena. VSS. Hgb unchanged. C diff ordered, but not done as pt has had no further stools. Stable for dc to [facility] today. S/P 1 week Levaquin for CAP.
--- NOTE | 2017-07-27 10:08 | ASMTLACE ---
LACE Length of stay for Answers: 4-6 days current admission Acuity / Level of Answers: Yes Care: Did the patient have an inpatient admission? Comorbidities - select Answers: Moderate or severe liver all that apply or renal disease # of Emergency department Answers: 1-2 visits in the last 6 months Social determinants Answers: Homelessness (street, senior living) Lack of community resources and/or lack of social support (no pcp, lives alone, transportation, florentino d) Score: 19 Date Signed: 07/27/2017 10:07 AM Electronically Signed By:Isabell Paredes LCSW
[2017-07-27 11:02] VITALS: BP 103/71; TEMP 97.2
--- NOTE | 2017-07-27 16:55 | ASDISCHSUM ---
Discharge Information Plan Status:SNF Medically Cleared to Leave: Discharge Date:07/27/2017 04:20 PM CM D/C Disposition:[facility] ADT D/C Disposition:[facility] Projected Discharge Date:07/27/2017 11:00 AM Transportation at D/C:Wheelchair Van Discharge Delay Reason: Follow-Up Date:07/27/2017 11:00 AM Discharge Slot: Final Diagnosis: Placement Information Referral Type:*Jail/SNF Referral ID:[id number] Provider Name:[facility] Address 1:[address] [place] [address] Address 2: City:[place] Selection Factors: State:[place] Patient Contact Information Contact Name:TANIA Relationship:Other Address: Work Phone: City: [facility] Phone: State/Zip Code: Email: Financial Information Financial Class:Medicare Primary Plan Desc:MEDICARE INPATIENT Primary Plan Number:[id number] Secondary Plan Desc:MED[place] Secondary Plan Number:[id number] Assessment Information [facility] CM Progress Note CM Note CM Note Notes: Pt admittedd w/RSV and likely PNA. He has hx of liver transplant, is currently homeless staying at [facility] and awaiting housing. PT said pt may possibly need SNF, although pt just admitted today, will see how he progresses tomorrow and discuss possibility of SNF if not stronger. If pt dc's back to [facility] CM will need to speak to pt about establishing PCP and set up appt. CM will follow. Date Signed: 07/20/2017 03:08 PM Electronically Signed By:Kristen Fuentes RN [facility] CM Progress Note CM Note CM Note Notes: Spoke w/, requested CM call [employer] because pt's dog Jerica is there while he's in hospital. CM called and spoke w/Faith [phone] ext. [phone], to notify her that pt may be here several days. She states they are prepared to take care of [place] until the end of July. CM to keep in contact with [facility]. Date Signed: 07/20/2017 04:01 PM Electronically Signed By:Nisa Dumont RN LACE LACE Length of stay for Answers: 4-6 days current admission Acuity / Level of Answers: Yes Care: Did the patient have an inpatient admission? 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 He is worried it will be towed. CM spoke w/Angelique at [facility] and his truck is there ([employer] runner) and that they will put a sign on it so it will not be towed. Pt also inquired about his guitar but they did not find one, will inquire at a [facility]. PT/OT recommend SNF, pt agreeable, would like some place in [place]. May needs ultc-100, has Medicare/Medicaid DC Plan: SNF Date Signed: 07/21/2017 05:36 PM Electronically Signed By:Nisa Dumont RN [facility] CM Progress Note CM Note CM Note Notes: Current Discharge Plan: [facility] - [facility] Per previous Case Management note, patient wishes to discharge to a skilled facility in [place]. Referrals sent to both [facility] and [facility]. [facility] has no bed availability. Spoke with Mario at [facility], able to accept this patient when medically stable. RADHARR completed and sent to facility. 3E CM on floor to coordinate placement of patient's dog while he goes to SNF. CM will continue to follow. Date Signed: 07/22/2017 03:43 PM Electronically Signed By:Neema Mcmillan RN [facility] KE[facility]INDE Progress Note CM Note CM Note Notes: Left message for Faith at the [facility], pt will need to go to SNF, per Faith at our last conversation, they are prepared to take care of [place] until the end of July. Date Signed: 07/22/2017 05:20 PM Electronically Signed By:Nisa Dumont RN [facility] Progress Note CM Note CM Note Notes: Spoke w/pt, let him know that he was accepted by [facility] in [place]. Pt pleased but inquired about his dog being able to stay with him there. CM told pt it's unlikely his dog can stay with him there as they may not have the staffing to accomodate dog care. Pt became very upset and stating "If I can't have my dog, I don't want to live!" " Everything has been taken from me!" CM assured pt that no one was trying to take his dog away but that he has to recover and that CM can work with [facility] so his dog can at least visit him. Pt states Jerica is a service dog but he does not have documentation and began to get upset again. Again, CM explained that at rehab, they would likely not be able to take care of his dog, but that he may need to stay at custodial a bit longer and have visits until he is able to be discharged from SNF. Pt states he needs to go from SNF to apt, he is on a waitlist with [facility]. CM to contact Faith at the [employer] DC Plan: [facility] Date Signed: 07/23/2017 11:42 AM Electronically Signed By:Nisa Dumont RN [facility] [place] Progress Note CM Note CM Note Notes: Left a message for Faith Crisostomo ([phone]) with the [employer] to make plans for patient's dog, [place]. Patient is still on schedule for SNF rehab with [facility]. Will talk to Marvin Santa tomorrow to see if we can help locate patient's guitar and car. CM will follow. Date Signed: 07/25/2017 04:54 PM Electronically Signed By:Cecile Le LCSW [facility] Progress Note CM Note CM Note Notes: Spoke with [facility] and they are ready for patient to d/c today. Seamus was prepared to set up transport when the patient informed his nurse he had dominick. Dr. Castro states we need to monitor and retest for CDIFF. Contacted Seamus back. The d/c is on hold until Dr. Castro has cleared patient to go. Spoke with Natalya at [facility] who is talking to their transportation consultant to see if they can fruit picker patient's dog and take him for a visit with patient once per week while he is in rehab. Tried multiple times to contact the [facility] to check on [place]. They are closed today due to inclement weather. Discharge papers were already faxed to [facility] via [employer].CM will follow. Date Signed: 07/26/2017 03:17 PM Electronically Signed By:Cecile Le LCSW [facility] [place] Progress Note CM Note CM Note Notes: Spoke with Seamus who states it is too late in the day and we need to move d/c to tomorrow. Dr. Castro informed to take down d/c order for now. We will await test results on patient and the resolution of any diahrrea. [facility] is prepared to take patient tomorrow if diahrrea has resolved and test results are negative. CM will follow. Date Signed: 07/26/2017 04:06 PM Electronically Signed By:Cecile Le LCSW Case Management Discharge Plan Note Case Management Discharge Discharge Order Complete? Answers: Yes Patient to Obtain Answers: Other Notes: [facility] SNF Medications Transportation Arranged Answers: Other Notes: Wheelchair arranged by the [facility] Faxed Final Orders Answers: Yes Notes: Sent via [employer] Agency/Facility Transfer Answers: Yes Report Printed & Faxed to Receiving Agency Discharge Comments Notes: Hannah met w/ Pt. at bedside today. Provided him with a typed list of contacts for him going forward to include the phone number for the [facility], [employer] where his dog is, and [facility] where his truck is. Pt. grateful, but "very nervous" about his future. Pt. is rightfully focused on getting permanent housing through the [place] or [place] [employer]. Worried that his dog Brownville will be fostered out - Pt. feels he will without [place]. Hannah called [employer] and gave them Pts phone number at the [facility]. They still have [place]. Hannah called Angelique at [facility] and reminded her about Pt's forerunner in their parking lot. Angelique states she will coordinate with [place] their facilties person to avoid getting truck towed. Hannah sent d/c paperwork via [employer]. Martin at the [facility] verified received. Mario arranged wheelchair transport for 15:30. Date Signed: 07/27/2017 11:35 AM Electronically Signed By:Isabell Paredes LCSW Intervention Information Intervention Type:*MOTA-Signed Date of Service:07/20/2017 10:22 AM Patient Type:Observation Staff Member:eMlani Gilmore Hours: Discipline: Severity: Comment: Intervention Type:*IM-Signed Date of Service:07/26/2017 03:16 PM Patient Type:Inpatient Staff Member:Melani Gilmore Hours: Discipline: Severity: Comment:
== END 2017-07-27 16:20 | DRG 193 ==
LOC: EDUNIT# → F3E 08:38 → OBSVTOIN 07-21 15:55
PROVIDERS: ADMIT Family Medicine; ATTEND Internal Medicine
DX: J15.9 Unspecified bacterial pneumonia (principal); J21.0 Acute bronchiolitis due to respiratory syncytial virus; J96.01 Acute respiratory failure with hypoxia; I95.9 Hypotension, unspecified; D69.6 Thrombocytopenia, unspecified; R63.6 Underweight; Z68.1 Body mass index [BMI] 19.9 or less, adult; Z59.0 Homelessness; Z94.4 Liver transplant status; Z79.899 Other long term (current) drug therapy
CPT/HCPCS: 97116-GP; 97162-GP; 97165-GO; 97530-GO; 97530-GP; 97535-GO; G0378; G8978-GP-CJ; G8979-GP-CI; G8987-GO-CJ; G8988-GO-CI; J1650; J1956; J7507